=== PATIENT | female | born 1985 | race Caucasian/White ===

== ENCOUNTER 2017-04-05 11:37 | Emergency (ER) | payer SELFPAY ==
--- NOTE | 2017-04-05 12:10 | UC ---
Ear Complaint HPI - HPI Summary HPI Summary: 31 y/o female presents to the urgent care c/o B/L ear pressure since 04/03/2017. On that date she woke up with dizziness, nasal congestion and vomiting. She though she had a viral infection since her son has the cold. Then she flew from [place] to [place] and on 04/04/2017 she started with B/L ear pressure, dizziness and 2 episodes of vomiting. she has been trying to get . LMP: 2016. she did a test which was negative. Today the B/L ear pressure persist with mild dizziness. N/V are gone. Pt is concern she has to fly back to [place] tomorrow. Pt denies fever, SOB, PERRY, chest pain, diarrhea. - History of Current Complaint Chief Complaint: UCGeneralIllness Stated Complaint: EAR PRESSURE Time Seen by Provider: 04/05/17 12:09 Hx Obtained From: Patient Hx Last Menstrual Period: 03/25/17 ?: No - Allergies/Home Medications Allergies/Adverse Reactions: Allergies Allergy/AdvReac Type Severity Reaction Status Date / Time No Known Allergies Allergy Verified 04/05/17 12:06 Home Medications: Home Medications Prenat Vit W/ Iron Carbonyl-Fe [Ob Complete/Dha 30-10-1-200 mg] 1 tab PO DAILY 04/05/17 [History Confirmed 04/05/17] PMH/Surg Hx/FS Hx/Imm Hx Previously Healthy: Yes - Pt denies PMHX - Surgical History Surgical History: None - Family History Family History: Dyslipidemia - Social History Occupation: Employed Full-time Lives: With Family Alcohol Use: None Substance Use Type: None Smoking Status (MU): Never Smoked Tobacco - Immunization History Most Recent Influenza Vaccination: Not UTD Review of Systems Constitutional: Negative Skin: Negative Eyes: Negative ENT: Ear Ache - B/L ear pressure Respiratory: Negative Cardiovascular: Negative Gastrointestinal: Negative Genitourinary: Negative Motor: Negative Neurovascular: Negative Musculoskeletal: Negative Neurological: Negative Psychological: Negative Is Patient Immunocompromised?: No All Other Systems Reviewed And Are Negative: Yes Physical Exam Triage Information Reviewed: Yes Vital Signs: Initial Vital Signs Temp 98.7 F 04/05/17 12:02 Pulse 72 04/05/17 12:02 Resp 16 04/05/17 12:02 BP 119/68 04/05/17 12:02 Pulse Ox 100 04/05/17 12:02 - Additional Comments Vital signs: reviewed General: awake and alert, not toxic appearing. Skin: [place], warm and dry, no evidence of atopic dermatitis, psoriasis, seborrhea. HEENT: Head: atraumatic, non tender; no scalp dermatitis.Cristóbal-hallpike maneuver elicit dizziness, no nystagmus observed Eyes: sclera and conjunctiva clear, PERRLA, EOMI Ears: no pre- or postauricular lymphadenopathy or erythema; LF external ear canal with erythema and mild white discharge, pinna tenderness on palpation, Rt TM WNL, RT external ear canal clear and LF TM WNL. TMs normal w/out bulging or retraction. Good light reflex. No fluid level, vesicles, or bullae. No perforation. Nose/Face: erythematous and edematous nasal mucosa with clear rhinorrhea, no frontal or maxillary sinus tender to palpation. Mouth/Throat: Mucous membrane moist, posterior pharynx clear, no erythema or exudates. Neck: supple, FROM, nontender, no lymphadenopathy, no meningismus. Chest: Clear to auscultation, normal breath sounds Abd: soft, Bowel sounds active, Nontender. Back: no spinal or CVAT Neuro: A&O x4, GCS 15, no focal neuro deficits, normal behavior for age. Ear Complaint Course/Dx - Course Course Of Treatment: 31 y/o female presents to the urgent care c/o B/L ear pressure since 04/03/2017. On that date she woke up with dizziness, nasal congestion and vomiting. She though she had a viral infection since her son has the cold. Then she flew from [place] to [place] and on 04/04/2017 she started with B/L ear pressure, dizziness and 2 episodes of vomiting. she has been trying to get . LMP: 04/24/2017. she did a test which was negative. Today the B/L ear pressure persist with mild dizziness. N/V are gone. Pt is concern she has to fly back to [place] tomorrow. Pt denies fever, SOB, PERRY , chest pain, diarrhea. Hx obtained. Pt with LF acute otitis externa on examiantion. Pt Rx Acetic acid otic drops and Meclizine PO to alleviate dizziness. Pt declined test since she recently did one which was negative. Pt advised Meclize PO was safe to take during . pt advised if not improve of symptoms to return to the urgent care of her PCP for further evaluation and treatment. pt agreed with plan of care. - Differential Dx/Diagnosis Differential Diagnosis/HQI/PQRI: Barotrauma, Mastoiditis, Otitis Externa, Otitis Media, Pharyngitis, URI, Other - Vertigo, BPPV, labyrithitis Provider Diagnoses: 1- Acute left otitis externa. 2-Dizziness Discharge - Discharge Plan Condition: Stable Disposition: HOME Prescriptions: Acetic Acid (Otic) [Acetic Acid] 2 % OT Q8HR #1 ferny Meclizine TAB* [Antivert 12.5 TAB*] 25 mg PO TID #21 tab Patient Education Materials: Otitis Externa (ED), Dizziness (ED) Referrals: [facility] [Outside] Additional Instructions: 1- Please apply otic drops as directed for otitis externa 2- Take Meclizine PO to alleviate dizziness. Use saline nasal spray or dropps to clear sinuses 3-if symptoms do not improve despite taking medications please f/u PCP or ENT in [place] in 1 week for further evaluation and treatment. 4- If dizziness continues severely despite medications please for Immediately to the ER for further evaluation and treatment.
== END 2017-04-05 12:45 | disposition home or self-care (01) ==
LOC: UCEAST 11:37
DX: H60.92 Unspecified otitis externa, left ear (principal); R42 Dizziness and giddiness
CPT/HCPCS: 99202; G0463